=== PATIENT | female | born 1990 | race African-American/Black ===

== ENCOUNTER 2023-12-13 12:48 | Emergency (ER) | payer OTHER, SELFPAY ==
[2023-12-13 12:58] VITALS: BP 171/94; PULSE 85; RESP 16; TEMP 36.7; O2SAT 100
--- NOTE | 2023-12-13 13:07 | ED.GENADULT ---
HPI - General Adult General Chief complaint: Extremity Injury, Upper Stated complaint: Right Shoulder Pain Source: patient, RN notes reviewed and old records reviewed Mode of arrival: ambulatory Limitations: no limitations History of Present Illness HPI narrative: 33-year-old female presents to [facility] with complaints neck and shoulder pain that started several months ago. Patient states pain today is in right shoulder and neck but states sometimes is in the other side. Patient states saw her PCP approximately 4-6 months ago and was told it was possibly tension/anxiety. Patient states is not improving patient states has tried [id number] NSAIDs and Tylenol with no relief. Related Data Allergies Allergy/AdvReac Type Severity Reaction Status Date / Time No Known Allergies Allergy Unverified 05/06/19 15:05 Review of Systems Constitutional: Constitutional: Reports no additional constitutional complaints, Denies body ache(s), Denies chills, Denies fatigue, Denies fever(s) and Denies headache(s) Eyes: Eyes: Reports no additional eye complaints and Denies blurry vision ENT: Reports system reviewed and no additional complaints, except as documented, Denies vertigo, Denies dizziness, Denies ear discharge, Denies otalgia, Denies facial pain, Denies headache(s), Denies nasal congestion, Denies nasal discharge, Denies sinus pain, Denies sinus pressure and Denies sore throat Cardiovascular: Cardiovascular: Reports no additional cardiovascular complaints, Denies chest pain, Denies chest pain at rest, Denies rapid heart rate and Denies dyspnea Respiratory: Respiratory: Reports no additional respiratory complaints, Denies chest congestion, Denies cough, Denies pain on inspiration, Denies pain with cough and Denies dyspnea Gastrointestinal: Gastrointestinal: Denies abdominal pain, Denies diarrhea, Denies nausea and Denies vomiting Musculoskeletal: Musculoskeletal: Reports as per HPI Comments: Right-sided neck /shoulder pain Integumentary/Breasts: Skin/Breast: Denies rash Neurologic: Reports system reviewed and no additional complaints, except as documented, Denies vertigo, Denies dizziness and Denies headache(s) Endocrine: Endocrine: Denies fatigue PMFSH Comments At the time of my signature, I reviewed and agree with the nursing past medical, surgical, social, and family history. There is no relevant family history pertinent to the patient complaint. Exam Const: General: cooperative, healthy appearing, no acute distress and well nourished Nutritional Appearance: well nourished Orientation/consciousness: patient oriented x3 Limitations: no limitations HENMT: Head: normal to inspection and normocephalic Ears: external ears normal Face/Nose/Sinus: normal facial exam Face and sinus: normal facial exam Mouth: Yes Normal oral and palatal mucosa present, Yes oropharynx normal and Yes moist mucous membranes Eyes: General: appearance normal, both eyes and all related structures Sclera: sclerae normal Pupils: Equal, round and reactive pupils present Resp: Effort & Inspection: normal respiratory effort, able to speak in complete sentences, no audible wheezes, no cough, no respiratory distress and no retractions Back/Spine/Pelvis: Back: no CVA tenderness, No mass, No erythema, No warmth, No sacral edema, No ecchymosis, No back tenderness and No Bain-Louise sign present Cervical Spine: normal cervical lordosis, cervical ROM normal, cervical muscular tenderness, No pain with cervical ROM, No Cervical spine tenderness and No step off deformity Thoracic/Lumbar Spine: thoracic and lumbar spine normal to inspection, No thoracic spinal tenderness and No lumbar spinal tenderness Skin: General skin exam: normal color and no rashes or lesions noted Neuro: General: patient oriented x3 Cranial nerves: Yes Equal, round and reactive pupils present Psych: Appearance: grossly normal Mental Status: mental status grossly normal Speech and mo
== END 2023-12-13 13:17 | disposition home or self-care (01) ==
PROVIDERS: Emergency Provider Registered Nurse; PCP Internal Medicine
DX: S16.1XXA Strain of muscle, fascia and tendon at neck level, initial encounter (principal); X58.XXXA Exposure to other specified factors, initial encounter
CPT/HCPCS: 99213; G0463

== ENCOUNTER 2023-12-23 08:03 | Emergency (ER) | payer OTHER, SELFPAY ==
[2023-12-23 08:12] VITALS: BP 151/84; PULSE 90; RESP 16; TEMP 36.5; O2SAT 100
--- NOTE | 2023-12-23 08:14 | ED.FEMALEGU ---
HPI - Female Genitourinary General Chief complaint: Urogenital-Female Stated complaint: Urinary Problem History of Present Illness HPI Narrative: PATIENT PRESENTS WITH URINARY FREQUENCY NAND DISCOMFORT WITH URINATION. NO PELVIC PAIN NO FLANK PAIN NO GROSS HEMATURIA NO CONCERN FOR STD. Related Data Allergies Allergy/AdvReac Type Severity Reaction Status Date / Time No Known Allergies Allergy Unverified 05/06/19 15:05 Review of Systems Review of Systems: CONSTITUTIONAL: DENIES FEVER, CHILLS, OR SWEATS. EYES: DENIES VISUAL CHANGES, REDNESS, OR DISCHARGE. ENT: DENIES RHINORRHEA, CONGESTION, SORE THROAT, OR OTALGIA. CARDIOVASCULAR: DENIES CHEST PAIN, PALPITATIONS, OR EDEMA. RESPIRATORY: DENIES COUGH OR DYSPNEA. GASTROINTESTINAL: DENIES ABDOMINAL PAIN, NAUSEA, VOMITING, OR DIARRHEA. GENITOURINARY: DENIES DYSURIA OR HEMATURIA. SKIN: DENIES RASH OR ITCHING. MUSCULOSKELETAL: DENIES BACK PAIN, JOINT PAIN, OR MYALGIA. NEUROLOGIC: DENIES HEADACHE, NUMBNESS, OR WEAKNESS. PSYCHIATRIC: DENIES ANXIETY OR DEPRESSION. PMFSH Comments AT TIME OF SIGNATURE, AGREE WITH NURSING PAST MEDICAL, SURGICAL, SOCIAL AND FAMILY HISTORY. THERE IS NO RELEVANT FAMILY HISTORY PERTINENT TO THE PRESENTING COMPLAINT Exam Narrative: GENERAL: WELL-APPEARING, WELL-NOURISHED, AND IN NO ACUTE DISTRESS. HEAD: NORMOCEPHALIC, ATRAUMATIC. EYES: PERRLA AND EOMI. ENT: NARES CLEAR, NO RHINORRHEA OR EPISTAXIS. MUCOUS MEMBRANES MOIST. NECK: SUPPLE. CHEST: CLEAR TO AUSCULTATION. NO RESPIRATORY DISTRESS. HEART: REGULAR RATE AND RHYTHM. NO MURMUR HEARD. NORMAL PERIPHERAL PULSES. ABDOMEN: SOFT, NONTENDER, NONDISTENDED, NORMAL ACTIVE BOWEL SOUNDS. NO FLANK PAIN NO SUPRAPUBIC PAIN NO PELVIC PAIN EXTREMITIES: NORMAL RANGE OF MOTION. NO EDEMA. SKIN: WARM, DRY, NO RASH. NEURO: NO FOCAL DEFICITS. ALERT AND ORIENTED X3. JOSE COMA SCALE EYE OPENING: SPONTANEOUS 4 JOSE COMA SCALE MOTOR: OBEYS COMMANDS 6 JOSE COMA SCALE VERBAL: ORIENTED 5 JOSE COMA SCALE TOTAL 15 Course Course Level of Care: Express Care Visit Vital Signs Vital signs: Vital Signs Temperature 36.5 C 12/23/23 08:12 Pulse Rate 90 12/23/23 08:12 Respiratory Rate 16 12/23/23 08:12 Blood Pressure 151/84 H 12/23/23 08:12 Pulse Oximetry 100 12/23/23 08:12 Oxygen Delivery Room Air 12/23/23 08:12 Temperature 36.5 C 12/23/23 08:12 Pulse Rate 90 12/23/23 08:12 Respiratory Rate 16 12/23/23 08:12 Blood Pressure 151/84 H 12/23/23 08:12 Pulse Oximetry 100 12/23/23 08:12 Oxygen Delivery Room Air 12/23/23 08:12 PLEASE ETHAN SCHEDULE A FOLLOWUP VISIT WITH YOUR PERSONAL PHYSICIAN FOR FURTHER EVALUATION AND TREATMENT. INCLUDING RECHECK AND DISCUSSION OF YOUR BLOOD PRESSURE. IF YOUR SYMPTOMS PERSIST, CHANGE OR WORSEN SIGNIFICANTLY BEFORE YOU CAN CONTACT YOUR PERSONAL PHYSICIAN THEN PLEASE, WITHOUT DELAY, GO TO THE EMERGENCY DEPARTMENT FOR FURTHER EVALUATION Discharge Plan Discharge Clinical Impression: Urinary tract infection Patient Disposition: Home, Self-Care Condition: Stable Instructions: Antibiotic Form Additional Instructions: INCREASE FLUIDS ESPECIALLY CRANBERRY JUICE AND WATER AVOID CAFFEINE AND CARBONATED BEVERAGES ANTIBIOTIC DIRECTED MEDICINE DIRECTED--CAUTIONED IT WILL CAUSE YOUR URINE TO BE BRIGHT ORANGE TYLENOL/IBUPROFEN FOR PAIN OR FEVER FOLLOW-UP WITH HER PRIMARY CARE PROVIDER IF FURTHER PROBLEMS OR CONCERNS RECHECK IF YOU HAVE FEVER OVER 101, NAUSEA AND VOMITING -IF YOU HAVE ANY WORSENING OF SYMPTOMS OR ANY OTHER CONCERNS PLEASE GO TO THE ED IMMEDIATELY. Prescriptions: New nitrofurantoin monohyd/m-cryst [Macrobid] 100 mg capsule 100 mg PO Q12H 5 Days Qty: 10 0RF Rx Instructions: must administer with a meal/food No Action cyclobenzaprine 10 mg tablet 10 mg PO TID PRN (Reason: muscle spasm) Qty: 14 0RF naproxen 500 mg tablet 500 mg PO BID Qty: 14 0RF Follow-up/Referrals: Ricky,Susanna
== END 2023-12-23 08:25 | disposition home or self-care (01) ==
PROVIDERS: Emergency Provider Nurse Practitioner Family; PCP Internal Medicine
DX: N39.0 Urinary tract infection, site not specified (principal); B96.89 Other specified bacterial agents as the cause of diseases classified elsewhere
CPT/HCPCS: 81003; 87077; 87086; 87088; 87186; 99213; G0463